=== PATIENT | female | born 1950 | race Caucasian/White ===

== ENCOUNTER 2019-09-15 11:28 | Observation (INO) | payer MEDICARE, BC ==
[~2019-09-15] VITALS: Ht 165.1 cm; Wt 83.9 kg
[2019-09-15 11:43] VITALS: BP 143/91
[2019-09-15] MEDS ORDERED: AMITRIPTYLINE H25 M3 PO (12:02)
[2019-09-15] MEDS ORDERED: LEVO-T25 MCG PO (12:02)
[2019-09-15] MEDS ORDERED: BACTRIM DS TAB1 EACH PO (12:03)
[2019-09-15] MEDS ORDERED: AUGMENTIN 875-1 EACH PO (12:05)
[2019-09-15 12:43] LABS: ABSOLUTE LYMPHOCYTES 1.6 thou/uL (0.8-5.3); ABSOLUTE MONOCYTES 0.7 thou/uL (0.0-1.2); ABSOLUTE NEUTROPHILS 4.5 thou/uL (1.6-8.1); BASOPHILS 0.6 %; HEMATOCRIT 41.8 % (37.0-47.0); HEMOGLOBIN 14.4 gm/dL (12.0-15.0); LYMPHOCYTES 23.2 %; MCH 29.3 pg (26.0-34.0); MCHC 34.5 g/dL (28.0-37.0); MCV 84.8 fL (80.0-100.0); MPV 7.7 fl. (7.2-11.1); NUCLEATED RBCS 0 /100WBC; PLATELET COUNT* 297 thou/uL (150-400); POLYS 66.2 %; RBC 4.93 mil/uL (4.20-5.00); RDW-CV 12.9 % (10.5-14.5); WBC 6.9 thou/uL (4.0-11.0)
[2019-09-15 12:50] LABS: CALCIUM 8.5 mg/dL (8.5-10.1); POTASSIUM 3.5 mmol/L (3.5-5.1)
[2019-09-15 12:55] LABS: ALBUMIN 2.9 g/dL (3.4-5.0); TOTAL BILIRUBIN 0.3 mg/dL (<0.1-1.0); TOTAL PROTEIN 7.3 g/dL (6.4-8.2)
[2019-09-15 14:40] VITALS: BP 136/85
[2019-09-15] MEDS ORDERED: BENADRYL25 MG PO (14:47)
[2019-09-15] MEDS ORDERED: CLARITIN10 MG PO (14:47)
[2019-09-15] MEDS ORDERED: VALTREX1000 MG PO (14:47)
[2019-09-15 14:50] VITALS: BP 155/81
--- NOTE | 2019-09-15 17:51 | NUR ---
PATIENT ADMITTED TO ROOM 118 THIS AFTERNOON. ALERT AND ORIENTED X 4. FALL RISK D/T A RECENT FALL. PHOTO OBTAINED OF SHINGLES ON RIGHT BREAST/ABD/BACK, NOTHING OPEN AND WOUND DRY. IVF INFUSING, ABX CANCELLED PER DR. TEMPLETON. PATIENT UNSTEADY WHEN FIRST OUT OF BED, ASSISTED TO BATHROOM. ORIENTED TO CALL LIGHT. BED ALARM ON PATIENT SAFETY. CALL LIGHT WITHIN REACH, WILL CONTINUE TO MONITOR.
[2019-09-15 20:00] VITALS: BP 139/80
[2019-09-15] MEDS ORDERED: KEFLEX500 M1 PO (23:48)
--- NOTE | 2019-09-16 04:43 | NUR ---
PT A&O, VSS ON RA. MEDS GIVEN ORDERED. PT DENIED PAIN. UP TO THE BATHROOM WITH STANDBY ASSIST. CALL LIGHT WITHIN REACH. BED ALARM ON FOR SAFETY. WILL CONTINUE TO MONITOR.
[2019-09-16 07:45] VITALS: BP 136/95
[2019-09-16 10:36] VITALS: BP 136/95
[2019-09-16] MEDS ORDERED: TRAMADOL 50 MG50 MG PO (10:59)
--- NOTE | 2019-09-16 11:39 | NUR ---
PATIENT C/O HEADACHE THIS AM BUT TOOK A NAP AND STATED SHE FELT BETTER. PATIENT STATED SHE FELT HER SHINGLES LOOKED BETTER. PHOTO OBTAINED YESTERDAY EVENING PER PROTOCOL. PATIENT TO DISCHARGE HOME TODAY. VERBALIZES UNDERSTANDING OF PAPERWORK AND SCRIPTS. IV DC'D. PATIENT TAKEN OUT VIA WHEELCHAIR WITH ALL BELONGINGS.
== END 2019-09-16 11:41 | disposition home or self-care (01) ==
LOC: M.ERS 11:28 → M.TBA-ER 12:32 → M.ORTHSURG 15:10
PROVIDERS: Physician Assistant; ADMIT Family Medicine
DX: B02.9 Zoster without complications (principal); E03.9 Hypothyroidism, unspecified; L03.319 Cellulitis of trunk, unspecified; Z90.710 Acquired absence of both cervix and uterus; Z98.890 Other specified postprocedural states; Z85.3 Personal history of malignant neoplasm of breast